=== PATIENT | male | born 1970 | race Caucasian/White ===

== ENCOUNTER 2018-04-11 05:32 | Day surgery (SDC) | payer BC ==
[2018-04-11] MEDS ORDERED: DIPRIVAN 200 MG/20 ML IV ONE (05:33)
[2018-04-11 06:20] VITALS: O2SAT 95
[2018-04-11] MEDS ORDERED: Lactated Ringers 1,000 ML IV SCH (06:30)
--- NOTE | 2018-04-11 07:56 | OP ---
SURGERY DATE/TIME: 04/11/2018 0658 PREOPERATIVE DIAGNOSIS: Screening exam. POSTOPERATIVE DIAGNOSIS: Normal colon. PROCEDURE: Colonoscopy. SURGEON: Dr. Martino. ANESTHESIA: MAC. Medications given by anesthesia department. HISTORY: The patient is a 48 year old white male patient presenting now for screening colonoscopy. He was appraised of the risks of the procedure including the risk of perforation, phlebitis, untoward reaction to medication, bleeding and missed lesions. The patient verbalized his understanding and desired to have the procedure performed. DESCRIPTION OF PROCEDURE: The patient was given the medications by the anesthesia department. He had continuous pulse oximetry, ECG monitoring, intermittent blood pressure monitoring and tidal CO2 monitoring during the examination. He was placed in the left lateral decubitus position. A digital rectal examination was performed and revealed normal anal sphincter tone, no masses and normal prostate. The flexible Olympus pediatric colonoscope was used to intubate the rectum. A view of the colon was developed sequentially to the cecum. Upon insertion and withdrawal, including a retroflex view in the rectum, no mucosal lesions were encountered. The scope was removed from the patient who tolerated the procedure well and was sent back to OP recovery in good condition. The prep was noted to be fair to good.
[2018-04-11 08:52] VITALS: PULSE 79
[2018-04-11 08:53] VITALS: BP 135/73
== END 2018-04-11 08:10 | disposition home or self-care (01) ==
LOC: SDC 05:32
PROVIDERS: ATTEND Family Medicine
DX: Z12.11 Encounter for screening for malignant neoplasm of colon (principal)
CPT/HCPCS: 94250; J2704

== ENCOUNTER 2021-03-03 11:05 | Emergency (ER) | payer BC ==
--- NOTE | 2021-03-03 11:11 | ERPHSYRPT ---
- History of Present Illness Time Seen by Provider: 03/03/21 11:10 Source: patient Exam Limitations: no limitations Physician History: This is a 51-year-old white male who has a history of hypertension and gastroesophageal reflux disease who presents with 2 to 3-day history of left lower back pain with radiation into his left buttock and left anterior thigh. Is described as a sharp, numb, burning pain. He has not lost bowel or bladder control. He did not suffer any acute traumatic injury. Approximately 3 days ago he was lifting heavy object at work and then within 24 hours he began having the above-stated symptoms. The symptoms have persisted and slightly worsened. Timing/Duration: day(s) (2 to 3 days), worse Method of Injury: lifting Quality: burning, sharp, other (Numb) Back Pain Location: paraspinous muscles Back Pain Radiation: buttocks, upper legs Severity of Pain-Max: moderate Severity of Pain-Current: moderate Modifying Factors: Improves With: movement Associated Symptoms: problems urinating, numbness in legs/feet (Upper anterior and lateral thigh on the left), lower back pain, muscle spasms, No urinary incontinence, No weakness, No tingling in legs/feet Previous symptoms: no prior history Allergies/Adverse Reactions: terbinafine [From Lamisil] Allergy (Severe, Verified 03/03/21 11:13) Home Medications: Carvedilol 6.25 mg [Coreg 6.25 MG] 6.25 mg PO BID 04/09/18 [History] Lisinopril 20 mg [Zestril 20 MG] 20 mg PO BID 04/09/18 [History] Omeprazole 20 MG [Prilosec 20 mg] 20 mg PO DAILY 04/09/18 [History] Travel Risk - International Travel Have you traveled outside of the country in past 3 weeks: No - Coronavirus Screening Are you exhibiting any of the following symptoms?: No Close contact with a COVID-19 positive Pt in past 14-21 Days: No - Review of Systems Constitutional: No Symptoms Eyes: No Symptoms Ears, Nose, & Throat: No Symptoms Respiratory: No Symptoms Cardiac: No Symptoms Abdominal/Gastrointestinal: No Symptoms Genitourinary Symptoms: No Symptoms Musculoskeletal: Back Pain Skin: No Symptoms Neurological: No Symptoms Psychological: No Symptoms Endocrine: No Symptoms Hematologic/Lymphatic: No Symptoms Immunological/Allergic: No Symptoms All Other Systems: Reviewed and Negative - Past Medical History Pertinent Past Medical History: Yes Neurological History: No Pertinent History ENT History: No Pertinent History Cardiac History: Deep Vein Thrombosis, High Cholesterol Respiratory History: Sleep Apnea Endocrine Medical History: No Pertinent History Musculoskeletal History: No Pertinent History GI Medical History: GERD History: No Pertinent History Psycho-Social History: No Pertinent History Male Reproductive Disorders: No Pertinent History - Past Surgical History Past Surgical History: Yes Neuro Surgical History: No Pertinent History Cardiac: No Pertinent History Respiratory: No Pertinent History Gastrointestinal: No Pertinent History Genitourinary: No Pertinent History Musculoskeletal: No Pertinent History Male Surgical History: No Pertinent History Other Surgical History: pt had lymph node removed - Social History Smoking Status: Never smoker Exposure to second hand smoke: No Drug Use: none - Nursing Vital Signs Nursing Vital Signs: Initial Vital Signs Temperature 99.0 F 03/03/21 11:15 Pulse Rate 65 03/03/21 11:15 Respiratory Rate 18 03/03/21 11:15 Blood Pressure 141/82 03/03/21 11:15 O2 Sat by Pulse Oximetry 97 03/03/21 11:15 Pain Scale Pain Intensity [Back] 9 Pain Intensity 9 - Physical Exam General Appearance: mild distress, alert, anxiety Eye Exam: PERRL/EOMI, eyes nml inspection Ears, Nose, Throat Exam: normal ENT inspection, moist mucous membranes Neck Exam: normal inspection, non-tender, supple, full range of motion Respiratory Exam: airway intact, No chest tenderness, No respiratory distress Gastrointestinal Exam: No tenderness Rectal Exam: not done Back Exam: normal inspection, decreased range of motion, muscle spasm Extremity Exam: normal inspection, normal range of motion, pelvis stable Neurologic Exam: alert, oriented x 3, cooperative, 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, normal mood/affect, nml cerebellar function, nml station & gait, sensation nml Skin Exam: normal color, warm, dry Lymphatic Exam: No adenopathy SpO2 Interpretation: normal O2 Delivery: Room Air - Course Nursing assessment & vital signs reviewed: Yes - Progress Progress: pain not gone completely Counseled pt/family regarding: diagnosis, need for follow-up - Departure Departure Disposition: Home Clinical Impression: Left-sided back pain, Sciatica Condition: Stable Critical Care Time: No Referrals: JOVON REED NP [Primary Care Provider] - Additional Instructions: Call your prescribing physician on 03/06/2021 for further management. Take your medication as prescribed.
[2021-03-03] MEDS ORDERED: solu-MEDROL 125 MG, Sterile H2O 10 ml 2 ML IM ONE ×2 (11:47)
[2021-03-03] MEDS ORDERED: Hydromorphone 1 mg/ml Injection IM ONE (11:48)
[2021-03-03] MEDS ORDERED: ZOFRAN ODT 4 MG PO ONE (11:48)
[2021-03-03] MEDS ORDERED: Norflex 60 MG/2 ML IM ONE (11:50)
[2021-03-03] MEDS ORDERED: solu-MEDROL ONE (11:57)
[2021-03-03] MEDS ORDERED: ZOFRAN ODT 4 MG ONE (11:57)
[2021-03-03] MEDS ORDERED: Norflex 60 MG/2 ML ONE (11:57)
[2021-03-03] MEDS ORDERED: Sterile H2O 10 ml IJ ONE (11:57)
[2021-03-03] MEDS ORDERED: Hydromorphone 1 mg/ml Injection ONE (11:57)
[2021-03-03 13:14] VITALS: BP 130/91; PULSE 55; O2SAT 93
== END 2021-03-03 13:14 | disposition home or self-care (01) ==
LOC: ED 11:05
DX: M54.42 Lumbago with sciatica, left side (principal)
CPT/HCPCS: 96372; 99284; J1170; J2360; J2930; Q0162

== ENCOUNTER 2021-11-19 10:32 | Emergency (ER) | payer BC, OTHER ==
[2021-11-19 12:07] VITALS: BP 117/73; O2SAT 98
--- NOTE | 2021-11-19 12:42 | ERPHSYRPT ---
- History of Present Illness Time Seen by Provider: 11/19/21 10:36 Source: patient Exam Limitations: no limitations Patient Subjective Stated Complaint: Pt states that he hasn't had a normal bowel movement in over a week, has taken laxatives, suppositories, enemas and has had only small bowel movements with a lot of effort behind it, he feels bloated, pt began ozempic approx 3 months ago and started adipex approx 2 weeks and thinks that was causing the problems and so he stopped the adipex on Triage Nursing Assessment: Pt brought to the ER by his , abner azfar, denies pain only pressure, had some blood in a bowel movement but admits to having hemmroihoids and has been straining, pulses normal, skin n/w/d, no pain with palpatation to abdomen, doesn't appear to be in any distress Physician History: 51 years old male presented in the ER with chief complaint of constipation. Patient report he did not have a bowel movement little over a week. He has taken 2 enemas since yesterday andDulcolax suppository with little bowel movement. Denies any abdominal pain but has urged to have bowel movement, cannot go. Patient reports she is on Ozempic for 3 months and almost 2 weeks ago he was started on phentermine. Timing/Duration: day(s) (), gradual onset, worse Severity: moderate Modifying Factors: Improves With: nothing Associated Symptoms: No vomiting, No abdominal pain, No shortness of breath, No cough, No chest pain, No fever, No syncope, No weakness Allergies/Adverse Reactions: terbinafine [From Lamisil] Allergy (Severe, Verified 11/19/21 10:57) Home Medications: Carvedilol [Coreg ] 25 mg PO BID 04/09/18 [History] Lisinopril 20 mg [Zestril 20 MG] 20 mg PO BID 04/09/18 [History] Omeprazole 20 MG [Prilosec 20 mg] 20 mg PO DAILY 04/09/18 [History] Amlodipine Besylate 2.5 mg PO DAILY 11/19/21 [History] Semaglutide [Ozempic] 0.5 mg SQ WEEKLY 11/19/21 [History] Simvastatin 10 mg [Zocor 10MG] 10 mg PO DAILY 11/19/21 [History] Hx Influenza Vaccination/Date Given: No Hx Pneumococcal Vaccination/Date Given: No Travel Risk - International Travel Have you traveled outside of the country in past 3 weeks: No - Coronavirus Screening Are you exhibiting any of the following symptoms?: No Close contact with a COVID-19 positive Pt in past 14-21 Days: No - Vaccine Status Have you recieved a Covid-19 vaccination: No - Review of Systems Constitutional: No Symptoms Eyes: No Symptoms Ears, Nose, & Throat: No Symptoms Respiratory: No Symptoms Cardiac: No Symptoms Abdominal/Gastrointestinal: Constipation, No Abdominal Pain, No Vomiting Genitourinary Symptoms: No Symptoms Musculoskeletal: No Symptoms Skin: No Symptoms Neurological: No Symptoms Endocrine: No Symptoms Immunological/Allergic: No Symptoms - Past Medical History Pertinent Past Medical History: Yes Neurological History: No Pertinent History ENT History: No Pertinent History Cardiac History: Deep Vein Thrombosis, High Cholesterol Respiratory History: Sleep Apnea Endocrine Medical History: No Pertinent History Musculoskeletal History: No Pertinent History GI Medical History: GERD History: No Pertinent History Psycho-Social History: No Pertinent History Male Reproductive Disorders: No Pertinent History Other Medical History: OA, R SILVANA, HISTORY OF BACK PAIN WITH HEAVY LIFTING THAT WOULD GO AWAY AFTER A FEW DAYS. - Past Surgical History Past Surgical History: Yes Neuro Surgical History: No Pertinent History Cardiac: No Pertinent History Respiratory: No Pertinent History Gastrointestinal: No Pertinent History Genitourinary: No Pertinent History Musculoskeletal: No Pertinent History Male Surgical History: No Pertinent History Other Surgical History: pt had lymph node removed - Social History Smoking Status: Never smoker Exposure to second hand smoke: No Drug Use: none Patient Lives Alone: No - Nursing Vital Signs Nursing Vital Signs: Initial Vital Signs Temperature 98.4 F 11/19/21 10:43 Pulse Rate 83 11/19/21 10:43 Blood Pressure 116/86 11/19/21 10:43 O2 Sat by Pulse Oximetry 97 11/19/21 10:43 Pain Scale Pain Intensity 0 - Physical Exam General Appearance: no apparent distress, alert Eye Exam: PERRL/EOMI Ears, Nose, Throat Exam: normal ENT inspection, pharynx normal Neck Exam: normal inspection, full range of motion Respiratory Exam: normal breath sounds, lungs clear Cardiovascular Exam: regular rate/rhythm, normal heart sounds Gastrointestinal/Abdomen Exam: soft, normal bowel sounds, No tenderness, No guarding Back Exam: normal inspection, normal range of motion Extremity Exam: normal inspection, normal range of motion Neurologic Exam: alert, oriented x 3, cooperative Skin Exam: normal color SpO2 Interpretation: normal SpO2: 98 O2 Delivery: Room Air Ordered Tests: Active Orders 24 hr Category Date Time Status ABDOMEN 2 VIEW Stat Exams 11/19/21 11:45 Taken - Progress Progress: unchanged Progress Note: 11/19/21 13:07 51 years old is evaluated for constipation. X-rays were obtained which showed nonobstructive bowel gas pattern and moderate stool load more on the right side. Given soapsuds enema with minimal output. I recommended mag citrate and Dulcolax pills to take at home. Patient does not have any peritoneal signs on repeated evaluation. Good bowel sounds. His constipation could be secondary to Adipex/Ozempic. Discussed signs symptoms of worsening needing return to ER which he seems understanding. Counseled pt/family regarding: diagnosis, need for follow-up, rad results - Departure Departure Disposition: Home Clinical Impression: Constipation Condition: Stable Critical Care Time: No Referrals: SUSANNA PHILLIPS MD [Primary Care Provider] - Follow up/PCP as directed (1-2 days for reevaluation) Instructions: Constipation, Adult (DC) Additional Instructions: Drink plenty of fluids. Take mag citrate/Dulcolax pills to use as needed for bowel movement. Follow-up with primary care for reevaluation. Return to ER for worsening constipation or if develop abdominal pain, distention etc.
[2021-11-19 13:00] VITALS: PULSE 81
--- NOTE | 2021-11-19 17:50 | XRAY ---
Indication: Constipation. Comparison: None 2 view abdomen demonstrates nonspecific nonobstructed bowel gas pattern with mild fecal debris predominantly in transverse colon. Solid organs unremarkable. Osseous structures intact with osteopenia, multilevel thoracolumbar degenerative spondylosis, mild dextroscoliosis centered at L2-L3, and right total hip arthroplasty. Impression: Nonacute nonobstructed abdomen with chronic features.
== END 2021-11-19 13:17 | disposition home or self-care (01) ==
LOC: ED 10:32
DX: K59.00 Constipation, unspecified (principal); E78.5 Hyperlipidemia, unspecified; Z79.899 Other long term (current) drug therapy; Z28.310 Unvaccinated for COVID-19
CPT/HCPCS: 74021; 99282

== ENCOUNTER 2021-12-04 20:02 | Emergency (ER) | payer BC, OTHER ==
--- NOTE | 2021-12-04 20:07 | ERPHSYRPT ---
- History of Present Illness Time Seen by Provider: 12/04/21 20:07 Historian: patient Exam Limitations: no limitations Physician History: This is a 51-year-old white male patient of Dr. Phillips who has not been on any new medications and has been constipated for 6 weeks. Patient does not appear to be on a consistent regulated bowel hygiene regimen. He has tried fleets enemas, suppositories, occasionally has used magnesium citrate (last time was 1 week ago) and started MiraLAX daily a couple days ago. Patient is passing flatus per his report. He became concerned because he did vomit today. He has some mild diffuse abdominal discomfort. He denies chest pain. He denies shortness of breath. Patient has a history of elevated cholesterol, hypertension, DVT and gastroesophageal reflux disease. Timing/Duration: week(s) (6) Quality: aching (Mild diffuse) Abdominal Pain Onset Location: generalized abdomen (Mild diffuse) Pain Radiation: no radiation Severity of Pain-Max: mild Severity of Pain-Current: mild Modifying Factors: Improves With: nothing Associated Symptoms: nausea Previous symptoms: same symptoms as today Allergies/Adverse Reactions: terbinafine [From Lamisil] Allergy (Severe, Verified 11/19/21 10:57) Home Medications: Carvedilol [Coreg ] 25 mg PO BID 04/09/18 [History] Lisinopril 20 mg [Zestril 20 MG] 20 mg PO BID 04/09/18 [History] Omeprazole 20 MG [Prilosec 20 mg] 20 mg PO DAILY 04/09/18 [History] Amlodipine Besylate 2.5 mg PO DAILY 11/19/21 [History] Semaglutide [Ozempic] 0.5 mg SQ WEEKLY 11/19/21 [History] Simvastatin 10 mg [Zocor 10MG] 10 mg PO DAILY 11/19/21 [History] Hx Influenza Vaccination/Date Given: No Hx Pneumococcal Vaccination/Date Given: No Travel Risk - International Travel Have you traveled outside of the country in past 3 weeks: No - Coronavirus Screening Are you exhibiting any of the following symptoms?: No Close contact with a COVID-19 positive Pt in past 14-21 Days: No - Vaccine Status Have you recieved a Covid-19 vaccination: No - Review of Systems Constitutional: No Symptoms Eyes: No Symptoms Ears, Nose, & Throat: No Symptoms Respiratory: No Symptoms Cardiac: No Symptoms Abdominal/Gastrointestinal: Abdominal Pain (Mild diffuse), Vomiting, Constipation (Present for 6 weeks), No Diarrhea (Once) Genitourinary Symptoms: No Symptoms Musculoskeletal: No Symptoms Skin: No Symptoms Neurological: No Symptoms Psychological: No Symptoms Endocrine: No Symptoms Hematologic/Lymphatic: No Symptoms Immunological/Allergic: No Symptoms All Other Systems: Reviewed and Negative - Past Medical History Pertinent Past Medical History: Yes Neurological History: No Pertinent History ENT History: No Pertinent History Cardiac History: Deep Vein Thrombosis, High Cholesterol Respiratory History: Sleep Apnea Endocrine Medical History: No Pertinent History Musculoskeletal History: No Pertinent History GI Medical History: GERD History: No Pertinent History Psycho-Social History: No Pertinent History Male Reproductive Disorders: No Pertinent History Other Medical History: OA, R SILVANA, HISTORY OF BACK PAIN WITH HEAVY LIFTING THAT WOULD GO AWAY AFTER A FEW DAYS. - Past Surgical History Past Surgical History: Yes Neuro Surgical History: No Pertinent History Cardiac: No Pertinent History Respiratory: No Pertinent History Gastrointestinal: No Pertinent History Genitourinary: No Pertinent History Musculoskeletal: No Pertinent History Male Surgical History: No Pertinent History Other Surgical History: pt had lymph node removed - Social History Smoking Status: Never smoker Exposure to second hand smoke: No Drug Use: none Patient Lives Alone: No - Nursing Vital Signs Nursing Vital Signs: Initial Vital Signs Temperature 97.4 F 12/04/21 20:44 Pulse Rate 77 12/04/21 20:44 Respiratory Rate 18 12/04/21 20:44 Blood Pressure 125/82 12/04/21 20:44 O2 Sat by Pulse Oximetry 99 12/04/21 20:44 Pain Scale Pain Intensity 6 - Physical Exam General Appearance: no apparent distress, alert, anxiety, obese Eye Exam: PERRL/EOMI, eyes nml inspection Ears, Nose, Throat Exam: normal ENT inspection, moist mucous membranes Neck Exam: normal inspection, non-tender, supple, full range of motion Respiratory Exam: normal breath sounds, lungs clear, airway intact, No chest tenderness, No respiratory distress Cardiovascular Exam: regular rate/rhythm, normal heart sounds, normal peripheral pulses Gastrointestinal/Abdomen Exam: soft, normal bowel sounds, tenderness (Mild diffuse), No guarding, No rebound Rectal Exam: not done Back Exam: normal inspection, normal range of motion, No CVA tenderness, No vertebral tenderness Extremity Exam: normal inspection, normal range of motion, pelvis stable Neurologic Exam: alert, oriented x 3, cooperative, superintendent service II-XII nml as tested, normal mood/affect, nml cerebellar function, nml station & gait, sensation nml Skin Exam: normal color, warm, dry Lymphatic Exam: No adenopathy SpO2 Interpretation: normal O2 Delivery: Room Air - Course Nursing assessment & vital signs reviewed: Yes Ordered Tests: Active Orders 24 hr Category Date Time Status KUB Stat Exams 12/04/21 21:04 Taken - Progress Progress: unchanged Progress Note: 12/04/21 23:14 KUB shows a significant amount of stool in the distal ascending, transverse colon and descending colon. There are no air-fluid levels. There is no free air present. Counseled pt/family regarding: diagnosis, need for follow-up, rad results - Departure Departure Disposition: Home Clinical Impression: Constipation Condition: Stable Critical Care Time: No Referrals: SUSANNA PHILLIPS MD [Primary Care Provider] - Follow up/PCP as directed Additional Instructions: Drop your diet down to clear liquids to full liquids diet. Use MiraLAX daily as instructed on the [id number] package. Tomorrow morning, approximately 2 hours after the MiraLAX, drink a full bottle of magnesium citrate rapidly as d iscussed. Make sure you are active, drink plenty of fluids, increase your fiber in your diet. Follow-up with your primary care doctor for further evaluation and management and to create a bowel hygiene program for you. In addition, have a discussion of repeating colonoscopy since you are having a change in your bowel habits. Prescriptions: Ondansetron ODT 4 MG [Zofran Odt 4 mg] 4 mg PO Q6H PRN PRN #10 tablet PRN Reason: Vomiting
[2021-12-04 21:44] VITALS: O2SAT 98
[2021-12-04 22:30] VITALS: PULSE 89
[2021-12-04] MEDS ORDERED: ZOFRAN ODT 4 MG PO ONE (23:17)
[2021-12-04] MEDS ORDERED: CITROMA 296 ML PO ONE (23:17)
[2021-12-04] MEDS ORDERED: ZOFRAN ODT 4 MG ONE (23:20)
[2021-12-04] MEDS ORDERED: CITROMA 296 ML ONE (23:21)
[2021-12-04 23:29] VITALS: BP 126/82
--- NOTE | 2021-12-05 09:31 | XRAY ---
Indication: Constipation several weeks. Comparison: None KUB demonstrates mild air distended small bowel loops without focal bowel dilatation/obstruction. Mild scattered colonic fecal debris. Solid organs unremarkable. Osseous structures intact with mild osteopenia, mild degenerative changes throughout visualized spine, minimal levoscoliosis, and partially visualized right total hip arthroplasty.
== END 2021-12-04 23:42 | disposition home or self-care (01) ==
LOC: ED 20:02
DX: K59.00 Constipation, unspecified (principal); R11.2 Nausea with vomiting, unspecified; R10.84 Generalized abdominal pain; E78.5 Hyperlipidemia, unspecified; I10 Essential (primary) hypertension; Z79.899 Other long term (current) drug therapy; Z28.310 Unvaccinated for COVID-19
CPT/HCPCS: 36000; 74018; 99283; Q0162; A9270-GY

== ENCOUNTER 2023-08-23 05:49 | Day surgery (SDC) | payer BC ==
[2023-08-23] MEDS: Lactated Ringers 1,000 ML IV SCH (06:14)
[2023-08-23 06:28] VITALS: RESP 16
[2023-08-23] MEDS ORDERED: DIPRIVAN 200 MG/20 ML IV ONE ×2 (06:59→07:14)
[2023-08-23] MEDS ORDERED: Xylocaine-Mpf 2% 5 Ml Vial ONE (07:00)
[2023-08-23] MEDS ORDERED: Versed 2 MG/2 ML Injection ONE (07:00)
[2023-08-23 08:18] VITALS: BP 121/76; PULSE 69; TEMP 97.6; O2SAT 96
--- NOTE | 2023-08-23 09:01 | OP ---
SURGERY DATE/TIME: 08/23/2023 0702 PREOPERATIVE DIAGNOSIS: Rectal pain. POSTOPERATIVE DIAGNOSIS: Normal colon. PROCEDURE: Colonoscopy. SURGEON: Dr. Martino. ANESTHESIA: Medications given by anesthesia department. HISTORY: The patient is a 53-year-old white male patient now presenting for complaints of some rectal discomfort. The patient reports he has had a previous colonoscopy that was normal. The patient was felt the need to have endoscopic evaluation. He was appraised of the risks of the procedure including the risk of perforation, phlebitis, untoward reaction to medication, bleeding and missed lesions. The patient verbalized his understanding and desired to have the procedure performed. DESCRIPTION OF PROCEDURE: The patient was given the medications by the anesthesia department. He had continuous pulse oximetry, ECG monitoring and intermittent blood pressure monitoring during the examination. He was placed in the left lateral decubitus position. A digital rectal examination was performed and revealed normal anal sphincter tone, no masses were felt and a normal prostate. The flexible Olympus pediatric colonoscope was used to intubate the rectum. A view of the colon was developed sequentially to the cecum. Upon insertion and withdrawal, including a retroflex view in the rectum, no mucosal lesions were encountered. The scope was removed from the patient who tolerated the procedure well and was sent back to OP recovery in good condition. The prep was noted to be fair to good.
== END 2023-08-23 08:30 | disposition home or self-care (01) ==
LOC: SDC 05:49
PROVIDERS: ATTEND Family Medicine
DX: K62.89 Other specified diseases of anus and rectum (principal); E11.9 Type 2 diabetes mellitus without complications
CPT/HCPCS: 82947; 93005; J2250; J2704